=== PATIENT | female | born 1985 | race Caucasian/White ===

== ENCOUNTER → 2018-09-12 | Outpatient (CLI) | payer OTHER | END | disposition home or self-care (01) | LOC: RAD 15:18 | PROVIDERS: ATTEND Family Medicine | DX: E83.59 Other disorders of calcium metabolism (principal); N29 Other disorders of kidney and ureter in diseases classified elsewhere; I87.8 Other specified disorders of veins; N13.30 Unspecified hydronephrosis; R31.9 Hematuria, unspecified | CPT/HCPCS: 74176 ==